=== PATIENT | male | born 1965 | race Caucasian/White ===

== ENCOUNTER 2016-07-28 18:30 | Emergency (ER) | payer OTHER ==
[~2016-07-28] VITALS: Ht 180.3 cm; Wt 67.5 kg
[~2016-07-28 18:30] MED LIST: FLEXERIL10 MG PO; MOTRIN800 MG PO
[2016-07-28 19:32] LABS: EOSINOPHIL (%) 0.5 % (0-5); HEMATOCRIT 42.3 % (38.0-50.0); IMMATURE GRANULOCYTE (%) 0.2 % (0.0-0.7); INSTRUMENT ABS NEUTROPHIL CT 4.6 K/uL; LYMPHOCYTE COUNT 0.6 K/uL (1.0-2.8); MCH 30.3 PG (29.0-34.0); MCHC 33.6 G/DL (30.0-36.0); MCV 90.4 FL (86-99); MEAN PLAT.VOLUME 10.7 uM^3 (9.0-12.4); MONOCYTE (%) 3.8 % (3-12); MONOCYTE COUNT 0.2 K/uL (0-0.8); NEUTROPHIL (%) 84.6 % (45-76); NEUTROPHIL COUNT 4.6 K/uL (1.8-6.4); PLATELET COUNT 129 K/uL (156-360); RBC DIS.WIDTH-CV 12.4 % (11.8-14.6); RBC DIS.WIDTH-SD 41.2 % (39-53); RED BLOOD COUNT 4.68 M/uL (4.00-5.50); WHITE BLOOD COUNT 5.5 K/uL (4.1-10.2)
[2016-07-28 20:28] LABS: INFLUENZA A VIRAL ANTIGEN NEGATIVE
[2016-07-28 20:29] LABS: INFLUENZA B VIRAL ANTIGEN POSITIVE
[2016-07-28] MEDS ORDERED: TAMIFLU75 MG PO (20:39)
[2016-07-28] MEDS ORDERED: PREDNISONE20 MG PO (20:39)
[2016-07-28] MEDS ORDERED: LEVAQUIN500 MG PO (20:55)
[2016-07-28] MEDS ORDERED: VENTOLIN HFA18 GM IH (21:22)
[2016-07-28 21:56] VITALS: BP 108/73
== END 2016-07-28 21:57 | disposition home or self-care (01) ==
LOC: EME 18:30
PROVIDERS: Physician Assistant
DX: J10.08 Influenza due to other identified influenza virus with other specified pneumonia (principal); J18.0 Bronchopneumonia, unspecified organism; J45.909 Unspecified asthma, uncomplicated
CPT/HCPCS: 71020; 83605; 85025; 87040; 87502; 94640 76; 99281; 99284; J1885; J2930; J7030; J7512